=== PATIENT | female | born 1955 | race Caucasian/White ===

== ENCOUNTER 2025-02-12 08:17 | Inpatient (IN) | payer MEDICARE, MEDICAID ==
[~2025-02-12] VITALS: Ht 152.4 cm; Wt 58.1 kg
[~2025-02-12 08:17] MED LIST: ACET-2708 MT; AMLO2.5T2 PO; ATOR20TA65 PO; BLOO-1618 MC; CIPR-452 MT; FOLI0.4T6 MT; LACT-390 MT; METF-414 PO; PANT40TA51 PO
[2025-02-12 08:45] LABS: BASOPHILS % 0.3 % (0.0-2.0); EOSINOPHILS % 0.4 % (0.0-5.0); HEMATOCRIT. 33.2 % (36.0-48.0); HEMOGLOBIN. 10.9 g/dL (12.0-16.0); LYMPHOCYTES % 14.5 % (20.0-50.0); MEAN CORPUSCULAR HEMOGLOBIN 27.8 pg (28.0-32.0); MEAN CORPUSCULAR HGB CONC 32.8 g/dL (31.0-37.0); MEAN CORPUSCULAR VOLUME 84.5 fL (81.0-99.0); MEAN PLATELET VOLUME 8.4 fl (7.4-10.4); MONOCYTES % 7.8 % (2.0-8.0); PLATELET 131 x1000/uL (130-400); RED BLOOD CELL COUNT 3.93 mill/uL (4.2-5.4); RED CELL DISTRIBUTION WIDTH 17.4 % (11.6-14.6); WHITE BLOOD COUNT 9.1 x1000/uL (4.5-11.0)
[2025-02-12 08:51] LABS: CHLORIDE 110 mEq/L (98-107); POTASSIUM 4.4 mEq/L (3.5-5.1); SODIUM 137 mEq/L (136-145)
[2025-02-12 08:52] LABS: CALCIUM 8.7 mg/dL (8.7-10.4); CARBON DIOXIDE 17 mEq/L (21-32)
[2025-02-12 08:57] LABS: CREATININE 0.8 mg/dL (0.6-1.0); GLUCOSE 150 mg/dL (70-105); UREA NITROGEN BLOOD 34 mg/dL (9-23)
[2025-02-12 08:58] LABS: ETHANOL BLOOD < 10 mg/dL (<10); TROPONIN I HIGH SENSITIVITY 24 ng/L (3.0-34)
[2025-02-12 09:33] LABS: AMMONIA 183 uMol/L (<32)
[2025-02-12] MEDS: LACTULOSE 20G/30ML UDC PO ONE (10:24)
[2025-02-12] MEDS ORDERED: ONDANSETRON HCL 4MG/2ML INJ IV PRN (10:45)
[2025-02-12] MEDS: AMLODIPINE 10MG TABLET PO SCH (10:45)
[2025-02-12] MEDS ORDERED: GUAIFENESIN 200MG/10ML SUGAR FREE UDC PO PRN (10:45)
[2025-02-12] MEDS ORDERED: CLONIDINE 0.1MG TABLET PO PRN (10:45)
[2025-02-12] MEDS ORDERED: MAGNESIUM/ALUMINUM HYDROXIDE/SIMETHICONE 30ML UDC PO PRN (10:45)
[2025-02-12] MEDS ORDERED: IPRATROPIUM/ALBUTEROL 0.5-3(2.5)MG/3ML NEB HHN PRN (10:45)
[2025-02-12] MEDS ORDERED: ACETAMINOPHEN 325MG TABLET PO PRN (10:45)
[2025-02-12] MEDS ORDERED: DEXTROSE 50% WATER 50ML SYRINGE IV PRN (10:45)
[2025-02-12] MEDS ORDERED: DOCUSATE SODIUM 100MG CAPSULE PO PRN (10:45)
[2025-02-12] MEDS: CARVEDILOL 3.125 MG TABLET PO SCH (10:45)
[2025-02-12] MEDS: PANTOPRAZOLE 40MG DR TABLET PO SCH (11:00)
[2025-02-12] MEDS: ENOXAPARIN 40MG/0.4ML SYR SUBCUT SCH (11:32)
[2025-02-12] MEDS: FUROSEMIDE 20MG/2ML VIAL IVP SCH (11:33)
[2025-02-12 11:58] VITALS: BP 157/62; PULSE 91; RESP 18; TEMP 36.5
[2025-02-12 12:00] VITALS: BP 175/86; PULSE 104; RESP 18; TEMP 35.8; O2SAT 100
[2025-02-12] MEDS: INSULIN LISPRO 100 UNITS/ML SUBCUT SCH (13:18)
[2025-02-12] MEDS: BLOOD SUGAR DIAGNOSTIC STRIP TEST SCH (13:18)
[2025-02-12] MEDS: LACTULOSE 20G/30ML UDC PO SCH ×2 (13:41→18:13)
[2025-02-12] MEDS: HYDRALAZINE 20MG/ML VIAL IV PRN (14:27)
[2025-02-12 15:56] VITALS: BP 121/50; PULSE 104; RESP 18; TEMP 36.1; O2SAT 100
[2025-02-12 16:20] LABS: INR 1.5; PROTHROMBIN TIME 15.5 sec (9.6-11.0)
[2025-02-12 16:41] LABS: IRON 119 ug/dL (50-170)
[2025-02-12 16:44] LABS: TOTAL IRON BINDING CAPACITY 316 ug/dl (250-425)
[2025-02-12 16:57] LABS: HEPATITIS B SURFACE ANTIGEN NEGATIVE (Negative)
[2025-02-12 17:18] LABS: HEPATITIS A AB IGM NEGATIVE (Negative)
[2025-02-12 17:19] LABS: HEPATITIS B CORE AB IGM NEGATIVE (Negative); HEPATITIS C AB NON REACTIVE (Neg) (Negative)
[2025-02-12 20:00] VITALS: BP 171/88; PULSE 99; RESP 19; TEMP 36.1; O2SAT 96
[2025-02-12] MEDS: RIFAXIMIN 550 MG TABLET PO SCH (21:18)
[2025-02-12] MEDS: ATORVASTATIN CALCIUM 20MG TABLET PO SCH (21:18)
[2025-02-12] MEDS: ACETAMINOPHEN 325MG TABLET PO PRN (21:45)
[2025-02-13] VITALS: BP 104/40; PULSE 85; RESP 18; TEMP 36.8; O2SAT 99
[2025-02-13 04:00] VITALS: BP 97/39; PULSE 86; RESP 17; TEMP 37.2; O2SAT 100
[2025-02-13 08:00] VITALS: BP 136/56; PULSE 99; RESP 17; TEMP 36.9; O2SAT 99
[2025-02-13] MEDS: SPIRONOLACTONE 50MG TABLET PO SCH (08:53)
[2025-02-13 08:59] LABS: HEMATOCRIT. 27.8 % (36.0-48.0); HEMOGLOBIN. 9.2 g/dL (12.0-16.0); MEAN CORPUSCULAR HEMOGLOBIN 27.6 pg (28.0-32.0); MEAN CORPUSCULAR HGB CONC 33.2 g/dL (31.0-37.0); MEAN CORPUSCULAR VOLUME 83.2 fL (81.0-99.0); MEAN PLATELET VOLUME 8.4 fl (7.4-10.4); PLATELET 100 x1000/uL (130-400); RED BLOOD CELL COUNT 3.34 mill/uL (4.2-5.4); RED CELL DISTRIBUTION WIDTH 17.9 % (11.6-14.6); WHITE BLOOD COUNT 6.6 x1000/uL (4.5-11.0)
[2025-02-13 09:00] LABS: DIFFERENTIAL COMMENT 1
[2025-02-13 09:22] LABS: FOLIC ACID (FOLATE) SERUM 11.75 ng/mL (>5.38)
[2025-02-13 09:38] LABS: CARBON DIOXIDE 22 mEq/L (21-32); CHLORIDE 107 mEq/L (98-107); POTASSIUM 3.4 mEq/L (3.5-5.1); SODIUM 139 mEq/L (136-145)
[2025-02-13 09:39] LABS: CALCIUM 7.8 mg/dL (8.7-10.4)
[2025-02-13 09:42] LABS: VITAMIN B12 SERUM > 2000 pg/mL (211-911)
[2025-02-13 09:43] LABS: CREATININE 0.7 mg/dL (0.6-1.0); GLUCOSE 119 mg/dL (70-105)
[2025-02-13 09:44] LABS: LDL CHOLESTEROL 100 mg/dL (5-100); TRIGLYCERIDE 85 mg/dL (0-150); UREA NITROGEN BLOOD 37 mg/dL (9-23)
[2025-02-13 09:45] LABS: ALANINE AMINOTRANSFERASE 45 IU/L (10-49); ALBUMIN 2.3 g/dL (3.2-4.8); ASPARTATE AMINOTRANSFERASE 86 IU/L (<34); CHOLESTEROL 168 mg/dL (<200); HDL CHOLESTEROL 37 mg/dL (>65)
[2025-02-13 09:46] LABS: BILIRUBIN TOTAL 2.7 mg/dL (0.1-1.0); PROTEIN TOTAL 5.4 g/dL (6.0-8.3)
[2025-02-13 09:48] LABS: THYROID STIMULATING HORMONE 4.13 uIU/mL (0.55-4.78)
[2025-02-13 10:46] LABS: CLARITY URINE CLEAR (CLEAR); COLOR URINE YELLOW (YELLOW); GLUCOSE URINE NEGATIVE (NEGATIVE); KETONES URINE NEGATIVE (NEGATIVE); LEUKOCYTE ESTERASE URINE 1+ (NEGATIVE); NITRITE URINE NEGATIVE (NEGATIVE); OCCULT BLOOD URINE NEGATIVE (NEGATIVE); PROTEIN URINE NEGATIVE (NEGATIVE); SPECIFIC GRAVITY URINE 1.016 (1.005-1.030)
[2025-02-13 11:11] LABS: BACTERIA URINE NONE SEEN; RBC URINE NONE SEEN /hpf (0-2); SQUAMOUS EPITHELIAL CELL URINE 1+ /lpf (RARE/1+)
[2025-02-13 11:30] LABS: ANISOCYTOSIS 1+; PLATELET ESTIMATE SLIGHTLY DECREASED
[2025-02-13 12:00] VITALS: BP 118/85; PULSE 99; RESP 18; TEMP 36.4; O2SAT 97
[2025-02-13 12:15] LABS: *AMPHETAMINES SCREEN URINE NEGATIVE (NEGATIVE); *BARBITURATES SCREEN URINE NEGATIVE (NEGATIVE); *BENZODIAZEPINES SCREEN URINE NEGATIVE (NEGATIVE); *COCAINE SCREEN URINE NEGATIVE (NEGATIVE); CANNABINOID URINE SCREEN NEGATIVE (NEGATIVE); METHADONE URINE SCREEN NEGATIVE (NEGATIVE); OPIATES URINE SCREEN NEGATIVE (NEGATIVE); PHENCYCLIDINE URINE SCREEN NEGATIVE (NEGATIVE)
[2025-02-13 12:16] LABS: ECSTASY MDMA SCREEN URINE NEGATIVE (NEGATIVE)
[2025-02-13 16:00] VITALS: BP 128/53; PULSE 98; RESP 18; TEMP 36.6; O2SAT 98
[2025-02-13] MEDS: KCL 20MEQ/100ML PREMIX 100 ML IV SCH (16:10)
[2025-02-13 20:00] VITALS: BP 117/56; PULSE 99; RESP 18; TEMP 36.4; O2SAT 90
[2025-02-13 22:19] LABS: AMMONIA 73 uMol/L (<32)
[2025-02-14] VITALS: BP 117/56; PULSE 99; RESP 18; TEMP 36.4; O2SAT 90
[2025-02-14 04:00] VITALS: BP 133/57; PULSE 84; RESP 19; TEMP 36.7; O2SAT 100
[2025-02-14 06:02] LABS: AMMONIA 75 uMol/L (<32)
[2025-02-14 06:20] LABS: CARBON DIOXIDE 24 mEq/L (21-32); CHLORIDE 105 mEq/L (98-107); POTASSIUM 3.8 mEq/L (3.5-5.1); SODIUM 136 mEq/L (136-145)
[2025-02-14 06:22] LABS: HEMATOCRIT 27.6 % (36.0-48.0); HEMOGLOBIN 9.2 g/dL (12.0-16.0); MEAN CORPUSCULAR HEMOGLOBIN 27.3 pg (28.0-32.0); MEAN CORPUSCULAR HGB CONC 33.2 g/dL (31.0-37.0); MEAN CORPUSCULAR VOLUME 82.3 fL (81.0-99.0); PLATELET 97 x1000/uL (130-400); RED BLOOD CELL COUNT 3.36 mill/uL (4.2-5.4); RED CELL DISTRIBUTION WIDTH 17.6 % (11.6-14.6); WHITE BLOOD COUNT 5.7 x1000/uL (4.5-11.0)
[2025-02-14 06:26] LABS: CREATININE 0.7 mg/dL (0.6-1.0); GLUCOSE 114 mg/dL (70-105); UREA NITROGEN BLOOD 27 mg/dL (9-23)
[2025-02-14 08:00] VITALS: BP 135/46; PULSE 70; RESP 18; TEMP 36.6; O2SAT 99
[2025-02-14] MEDS ORDERED: SPIR50TA5 PO (11:42)
[2025-02-14] MEDS ORDERED: RIFA550T PO ×2 (11:48→16:32)
[2025-02-14] MEDS ORDERED: FURO20TA4 PO ×2 (11:48→16:32)
[2025-02-14] MEDS ORDERED: LACT-390 MT ×2 (11:48→16:32)
[2025-02-14 12:00] VITALS: BP 151/50; PULSE 77; RESP 18; TEMP 36.5; O2SAT 98
[2025-02-14 16:00] VITALS: BP 117/47; PULSE 58; RESP 18; TEMP 36.4; O2SAT 99
[2025-02-14 16:15] LABS: HEMATOCRIT. 27.2 % (36.0-48.0); MEAN CORPUSCULAR HEMOGLOBIN 27.1 pg (28.0-32.0); MEAN CORPUSCULAR HGB CONC 32.9 g/dL (31.0-37.0); MEAN CORPUSCULAR VOLUME 82.2 fL (81.0-99.0); MEAN PLATELET VOLUME 8.5 fl (7.4-10.4); PLATELET 92 x1000/uL (130-400); RED BLOOD CELL COUNT 3.31 mill/uL (4.2-5.4); RED CELL DISTRIBUTION WIDTH 17.5 % (11.6-14.6); WHITE BLOOD COUNT 4.3 x1000/uL (4.5-11.0)
[2025-02-14 16:20] LABS: DIFFERENTIAL COMMENT 1
[2025-02-14 16:35] VITALS: BP 133/68; PULSE 82; TEMP 97.7; O2SAT 99
[2025-02-14 16:36] LABS: CHLORIDE 104 mEq/L (98-107); POTASSIUM 3.9 mEq/L (3.5-5.1); SODIUM 136 mEq/L (136-145)
[2025-02-14 16:37] LABS: CALCIUM 7.9 mg/dL (8.7-10.4); CARBON DIOXIDE 24 mEq/L (21-32)
[2025-02-14 16:42] LABS: CREATININE 0.8 mg/dL (0.6-1.0); GLUCOSE 159 mg/dL (70-105); UREA NITROGEN BLOOD 23 mg/dL (9-23)
[2025-02-14 16:44] LABS: ALANINE AMINOTRANSFERASE 47 IU/L (10-49); ALBUMIN 2.4 g/dL (3.2-4.8); ASPARTATE AMINOTRANSFERASE 88 IU/L (<34); BILIRUBIN TOTAL 1.8 mg/dL (0.1-1.0); PROTEIN TOTAL 5.3 g/dL (6.0-8.3)
[2025-02-14 16:45] LABS: ANISOCYTOSIS 1+; PLATELET ESTIMATE DECREASED
== END 2025-02-14 17:30 | disposition home or self-care (01) | DRG 432 ==
LOC: ER 08:29 → ENRESERV 10:08 → 6WST 10:32
PROVIDERS: ADMIT Internal Medicine; ATTEND Internal Medicine
DX: K74.60 Unspecified cirrhosis of liver (principal); G92.8 Other toxic encephalopathy; E72.20 Disorder of urea cycle metabolism, unspecified; D68.9 Coagulation defect, unspecified; R18.8 Other ascites; E11.9 Type 2 diabetes mellitus without complications; I10 Essential (primary) hypertension; D64.9 Anemia, unspecified; I16.0 Hypertensive urgency; K76.82 Hepatic encephalopathy; D69.6 Thrombocytopenia, unspecified; E78.5 Hyperlipidemia, unspecified; M81.0 Age-related osteoporosis without current pathological fracture; R16.1 Splenomegaly, not elsewhere classified; E88.09 Other disorders of plasma-protein metabolism, not elsewhere classified; Z79.899 Other long term (current) drug therapy; Z59.71 Insufficient health insurance coverage; Z86.73 Personal history of transient ischemic attack (TIA), and cerebral infarction without residual deficits
CPT/HCPCS: 36415; 71045; 76700; 80048; 80053; 80061; 80076; 80305; 80320; 81003; 82105; 82140; 82270; 82607; 82746; 82962; 83036; 83540; 83550; 84439; 84443; 84484; 85025; 85027; 85044; 86705; 86709; 87340; 93005; 99291; G0378; J0360; J1650; J1815; J1940; J3480; G0480